=== PATIENT | female | born 1975 | race African-American/Black ===

== ENCOUNTER 2017-01-28 08:16 | Emergency (ER) | payer MEDICAID ==
[~2017-01-28] VITALS: Ht 167.6 cm; Wt 80.0 kg
[~2017-01-28 08:16] MED LIST: Z.0.NO CURRENT MEDS
[2017-01-28 08:18] VITALS: BP 166/92; PULSE 99; RESP 15; TEMP 98.3; O2SAT 99
--- NOTE | 2017-01-28 08:32 | PD ---
HPI Chief Complaint: Oral / Dental Pain or Problem Time Seen by Provider: 08:32 Travel History International Travel<30 days: No Contact w/Intl Traveler<30days: No Traveled to known affect area: No History of Present Illness HPI 41-year-old female presents to the emergency Department with complaint of right upper dental pain since yesterday. Denies dental trauma. Reports facial swelling to the right side. Denies fever, vomiting. Denies sore throat or difficulty swallowing. Has been taking Aleve with minimal relief. Pain is constant and aggravated with eating, drinking, palpation. Symptoms are moderate in severity. Described as a throbbing sensation. No known allergies. Has no other medical complaints. No other modifying factors or associated signs and symptoms. PFSH Past Medical History ?: Not LMP: 12/29/16 Menopausal: No : 3 Para: 4 Miscarriage: 0 : 0 Past Surgical History Section: Yes Social History Alcohol Use: No Tobacco Use: No Substance Use: No Allergies-Medications (Allergen,Severity, Reaction): Coded Allergies: No Known Allergies (Verified , 06/19/09) Reported Meds & Prescriptions Reported Meds & Active Scripts Active Clindamycin (Clindamycin HCl) 150 Mg Cap 450 Mg PO Q6H 10 Days Peridex Liq (Chlorhexidine Gluconate (Mouth) Liq) 0.12% Soln 15 Ml SWISH-SPIT BID 10 Days Ibuprofen 800 Mg Tab 800 Mg PO Q6HR PRN Deltasone (Prednisone) 20 Mg Tab 40 Mg PO DAILY 4 Days start 01/29/2017 Reported No Current Meds (Miscellaneous Medication) Misc Review of Systems Except as stated in HPI: all other systems reviewed are Neg Physical Exam Narrative GENERAL: Well-nourished, well-developed black female patient, in no acute distress; afebrile, nontoxic-appearing SKIN: Warm and dry. HEAD: Atraumatic. Normocephalic. Right upper facial edema; without erythema; with tenderness on palpation. No lymphadenopathy. EYES: Pupils equal and round. No scleral icterus. No injection or drainage. ENT: Mucosa pink and moist. No erythema or exudates. No uvular edema. No uvular , palatal, or tonsillar deviation. Airway patent. EARS: Bilateral pinnae and external canals appear within normal limits. Bilateral tympanic membranes without erythema, dullness or perforation. MOUTH: Mucous membranes moist, no lesions, tongue and gums appear normal. Tooth #5 with tenderness on palpation. Surrounding gingiva is without erythema , edema, drainage. No obvious abscess noted. NECK: Trachea midline. No lymphadenopathy. CARDIOVASCULAR: Regular rate. RESPIRATORY: No accessory muscle use. GASTROINTESTINAL: Rounded. MUSCULOSKELETAL: No obvious deformities. No clubbing. No cyanosis. No edema. NEUROLOGICAL: Awake and alert. Oriented 3. No obvious cranial nerve deficits. Motor grossly within normal limits. Normal speech. PSYCHIATRIC: Appropriate mood and affect; insight and judgment normal. Data Data Last Documented VS Vital Signs Date Time Temp Pulse Resp B/P (MAP) Pulse Ox O2 Delivery O2 Flow Rate FiO2 01/28/17 08:18 98.3 99 15 166/92 (116) 99 Orders Orders Clindamycin Inj (Cleocin Inj) (01/28/17 08:45) Ketorolac Inj (Toradol Inj) (01/28/17 08:45) Ed Discharge Order (01/28/17 08:33) Prednisone (Deltasone) (01/28/17 08:45) [facility] Medical Decision Making Medical Screen Exam Complete: Yes Emergency Medical Condition: Yes Medical Record Reviewed: Yes Differential Diagnosis Dental abscess, dentalgia, gingivitis, infected dental carry Narrative Course 41-year-old female physical Exam consistent with dentalgia tooth #5 and right facial swelling. No obvious abscess noted. Patient is afebrile and nontoxic- appearing. Denies fever, vomiting. Clindamycin 600 mg IM, Deltasone, Toradol administered in the ER. Emergency dental information sheet provided for follow- up. Instructed patient to follow up with dentist. Clindamycin, ibuprofen, Peridex mouth rinse, Deltasone prescribed for home. Instructed patient to follow up with primary care provider. Patient verbalizes understanding and agreement with treatment plan. Patient is medically cleared and stable for discharge. Discussed reasons to return to the emergency department. Patient agrees with treatment plan. The patients vital signs are stable and the patient is stable for outpatient follow-up and treatment. Patient discharged home, stable and in no acute distress. Diagnosis Primary Impression: Dentalgia Additional Impression: Right facial swelling Referrals: [facility] Dentist Primary Care Physician Patient Instructions: Dental Abscess (ED), Dental Caries (ED), General Instructions, Toothache (ED) Departure Forms: Tests/Procedures, Work Release Enter return to work date: Jan 31, 2017 Additional Instructions: Complete full course of antibiotics Ibuprofen or Tylenol as directed and as needed to reduce pain and inflammation Use Peridex as directed for oral hygiene Warm or cool compresses to the affected area Follow-up with dentist Follow-up with primary care provider Return to emergency department immediately with worsening of symptoms Med/Other Pt SpecificInfo: Prescription(s) given Scripts Clindamycin (Clindamycin) 150 Mg Cap 450 MG PO Q6H for Infection for 10 Days, #120 CAP 0 Refills Prov: Rosa Dick 01/28/17 Chlorhexidine Gluconate (Mouth) Liq (Peridex Liq) 0.12% Soln 15 ML SWISH-SPIT BID for 10 Days, #300 ML 0 Refills Prov: Rosa Dick 01/28/17 Ibuprofen (Ibuprofen) 800 Mg Tab 800 MG PO Q6HR Y for PAIN, #30 TAB 0 Refills Prov: Rosa Dick 01/28/17 Prednisone (Deltasone) 20 Mg Tab 40 MG PO DAILY for 4 Days, #8 TAB 0 Refills start 01/29/2017 Prov: Rosa Dick 01/28/17 Disposition: 01 DISCHARGE HOME Condition: Stable Rosa Dick Jan 28, 2017 08:32
[2017-01-28] MEDS ORDERED: CLIN1CAP5 PO (08:35)
[2017-01-28] MEDS ORDERED: IBUP800T23 PO (08:35)
[2017-01-28] MEDS ORDERED: PERI0.126 SWISH-SPIT (08:35)
[2017-01-28] MEDS ORDERED: PRED-503 PO (08:35)
[2017-01-28] MEDS ORDERED: KETOROLAC TROMETHAMINE 60 MG/2 ML (IM) VIAL IM ONE (08:45)
[2017-01-28] MEDS ORDERED: CLINDAMYCIN PHOS 600 MG/4 ML VIAL IM ONE (08:45)
[2017-01-28] MEDS ORDERED: predniSONE 20 MG TAB PO ONE (08:45)
== END 2017-01-28 09:55 | disposition home or self-care (01) ==
LOC: NEPK 08:16
DX: K08.89 Other specified disorders of teeth and supporting structures (principal)
CPT/HCPCS: 96372; 99284; J1885; J7512